=== PATIENT | female | born 1990 | race African-American/Black ===

== ENCOUNTER 2018-01-16 04:40 | Inpatient (IN) ==
[2018-01-16] MEDS ORDERED: ONDANSETRON 4 MG/2 ML VIAL IV PRN ×2 (04:53→16:38)
[2018-01-16] MEDS ORDERED: OXYTOCIN/LR 20 UNIT/1,000 ML BAG IV SCH (05:00)
[2018-01-16] MEDS: LACTATED RINGERS 1,000 ML IV SCH ×2 (05:25→09:00)
[2018-01-16 05:26] LABS: Basophils % 0.2 % (0.0-0.8); Eosinophils # 0.1 10*3/uL (0.0-0.87); Eosinophils % 0.5 % (0.00-10.9); Hematocrit 37.2 VOL% (35.7-47.0); Immature Granulocytes % 0.6 %; Immature Granulocytes Absolute 0.08 #; Lymphocytes # 3.4 10*3/uL (1.4-4.0); Lymphocytes % 25.6 % (21.3-54.2); Mean Corpuscular HGB Conc 32.3 GM/DL (32-36); Mean Corpuscular Hemoglobin 28 PG (27-34); Mean Corpuscular Volume 88.2 FL (87-102); Monocytes # 0.8 10*3/uL (0.11-0.8); Monocytes % 6.2 % (1.7-12.7); Neutrophils # 8.9 10*3/uL (1.4-7.4); Neutrophils % 66.9 % (38.7-73.9); Platelet Count 167 T/CUMM (130-400); Red Blood Count 4.22 MC/CUMM (3.8-5.5); Red Cell Distribution Width 13.9 % (9.3-17.3); White Blood Count 13.3 T/CUMM (4-12)
[2018-01-16 05:35] LABS: Apearance,Urine CLOUDY (Clear); Bacteria,Urine Occasional /HPF (Few); Bilirubin,Urine Negative (Negative); Blood, Urine Negative (Negative); Glucose,Urine (UA) Negative (Negative); Ketones,Urine Negative (Negative); Mucus,Urine Occasional /LPF (Occasional); Nitrite,Urine Negative (Negative); Protein,Urine Negative; RBC,Urine 7 /HPF (0-4); Squamous Epithelial Cell,Urine Few /HPF (0-10); Urine Color Yellow (Yellow); Urine Specific Gravity 1.005 (1.001-1.035); Urine Urobilinogen < 2.0 EU/DL (0.2-1.0); WBC,Urine 25 /HPF (0-6)
[2018-01-16] MEDS ORDERED: hydrOXYzine HCL 25 MG/1 ML VIAL IM PRN (08:00)
[2018-01-16] MEDS ORDERED: diphenhydrAMINE 50 MG/1 ML VIAL IV PRN (08:00)
[2018-01-16] MEDS ORDERED: fentaNYL 2 MCG/ROPIV 0.2% EPID 100 ML EPIDURAL SCH (08:00)
[2018-01-16] MEDS ORDERED: CITRIC ACID/SODIUM CITRATE 30 ML UDCUP PO ONE (08:00)
[2018-01-16] MEDS ORDERED: PROMETHAZINE 25 MG/1 ML VIAL IM PRN (08:00)
[2018-01-16] MEDS ORDERED: NALOXONE 0.4 MG/ML VIAL IV PRN (08:00)
[2018-01-16] MEDS ORDERED: ePHEDrine 50 MG/ML AMP IV PRN (08:00)
[2018-01-16] MEDS ORDERED: FAMOTIDINE 20 MG/2 ML VIAL IV ONE (08:00)
[2018-01-16] MEDS ORDERED: AMPICILLIN INJ 2,000 MG in SODIUM CHLORIDE 0.9% 100 ML IV ONE (10:01)
[2018-01-16] MEDS ORDERED: AMPICILLIN 2,000 MG VIAL ONE (10:03)
[2018-01-16] MEDS ORDERED: SODIUM CHLORIDE 0.9% 100 ML IV ONE (10:04)
[2018-01-16] MEDS ORDERED: OXYTOCIN 10 UNIT/ML VIAL IM ONE ×2 (14:31)
[2018-01-16] MEDS ORDERED: OXYTOCIN/LR 30 UNIT/1,000 ML BAG IV ONE (14:31)
[2018-01-16] MEDS ORDERED: ceFAZolin 3,000 MG in SYRINGE 1 EACH IV SCH (15:00)
[2018-01-16] MEDS ORDERED: PHENYLEPHRINE 1 MG/10 ML SYRINGE IV ONE (16:31)
[2018-01-16] MEDS ORDERED: MORPHINE 10 MG/10 ML VIAL ONE (16:31)
[2018-01-16] MEDS ORDERED: fentaNYL 100 MCG/2 ML VIAL ONE (16:31)
[2018-01-16] MEDS ORDERED: LIDOCAINE MPF 2% /EPI 20 ML VIAL ONE (16:31)
[2018-01-16] MEDS ORDERED: ONDANSETRON 4 MG/2 ML VIAL ONE (16:31)
[2018-01-16 16:36] LABS: Cord Arterial Blood HCO3 14.8 MMOL/L
[2018-01-16 16:37] LABS: Cord Venous Blood HCO3 22.6 MMOL/L; Cord Venous Blood PCO2 59.1 MMHG; Cord Venous Blood PO2 27.3 MMHG
[2018-01-16] MEDS ORDERED: SIMETHICONE CHEW 80 MG TABLET PO PRN (16:38)
[2018-01-16] MEDS ORDERED: IBUPROFEN 800 MG TABLET PO PRN (16:38)
[2018-01-16] MEDS ORDERED: MAGNESIUM HYDROXIDE SUSP 30 ML UDCUP PO PRN (16:38)
[2018-01-16] MEDS ORDERED: OXYTOCIN/LR 20 UNIT/1,000 ML BAG IV ONE (16:38)
[2018-01-16] MEDS ORDERED: ACETAMINOPHEN 325 MG TABLET PO PRN (16:38)
[2018-01-16] MEDS ORDERED: RHO(D) IMMUNE GLOBULIN 300 MCG SYRINGE IM ONE (16:38)
[2018-01-16] MEDS: DOCUSATE SODIUM 100 MG CAPSULE PO SCH (22:37)
[2018-01-16] MEDS: ceFAZolin 1,000 MG in SYRINGE 1 EACH IV SCH (22:54)
[2018-01-16 23:32] LABS: Basophils # 0.1 10*3/uL (0.0-0.2); Basophils % 0.2 % (0.0-0.8); Hematocrit 32.7 VOL% (35.7-47.0); Hemoglobin 10.5 GM/DL (12.0-16.0); Immature Granulocytes % 0.7 %; Immature Granulocytes Absolute 0.18 #; Lymphocytes # 1.2 10*3/uL (1.4-4.0); Lymphocytes % 4.4 % (21.3-54.2); Mean Corpuscular HGB Conc 32.1 GM/DL (32-36); Mean Corpuscular Hemoglobin 29 PG (27-34); Mean Corpuscular Volume 88.6 FL (87-102); Mean Platelet Volume 12.7 FL (9.6-12.0); Monocytes # 1.4 10*3/uL (0.11-0.8); Monocytes % 4.9 % (1.7-12.7); Neutrophils # 24.9 10*3/uL (1.4-7.4); Neutrophils % 89.8 % (38.7-73.9); Platelet Count 143 T/CUMM (130-400); Red Blood Count 3.69 MC/CUMM (3.8-5.5); Red Cell Distribution Width 13.7 % (9.3-17.3); White Blood Count 27.7 T/CUMM (4-12)
[2018-01-17] MEDS: LACTATED RINGERS 1,000 ML IV SCH (02:19)
[2018-01-17 03:45] LABS: Band Neutrophils 4 % (0-10); Lymphocytes 2 % (20-55); Segmented Neutrophils 91 % (50-85); Total Cells Counted 100
[2018-01-17 03:46] LABS: Platelet Estimate Decreased
[2018-01-17] MEDS: ceFAZolin 1,000 MG in SYRINGE 1 EACH IV SCH (06:06)
[2018-01-17 07:51] LABS: Basophils % 0.1 % (0.0-0.8); Hematocrit 30.6 VOL% (35.7-47.0); Hemoglobin 10.1 GM/DL (12.0-16.0); Immature Granulocytes % 0.7 %; Immature Granulocytes Absolute 0.17 #; Lymphocytes # 2.2 10*3/uL (1.4-4.0); Lymphocytes % 9.3 % (21.3-54.2); Mean Corpuscular Hemoglobin 29 PG (27-34); Mean Corpuscular Volume 88.4 FL (87-102); Mean Platelet Volume 12.6 FL (9.6-12.0); Monocytes # 1.5 10*3/uL (0.11-0.8); Monocytes % 6.1 % (1.7-12.7); Neutrophils # 20.1 10*3/uL (1.4-7.4); Neutrophils % 83.8 % (38.7-73.9); Platelet Count 146 T/CUMM (130-400); Red Blood Count 3.46 MC/CUMM (3.8-5.5); Red Cell Distribution Width 13.7 % (9.3-17.3)
[2018-01-17 08:37] LABS: Lymphocytes 6 % (20-55); Segmented Neutrophils 92 % (50-85); Total Cells Counted 100
[2018-01-17 08:47] LABS: Platelet Estimate Decreased
[2018-01-17] MEDS: METOCLOPRAMIDE 10 MG/2 ML VIAL IV SCH ×3 (09:47→20:58)
[2018-01-17] MEDS: MAGNESIUM HYDROXIDE SUSP 30 ML UDCUP PO SCH ×2 (09:55→20:57)
[2018-01-17] MEDS: DOCUSATE SODIUM 100 MG CAPSULE PO SCH ×2 (09:55→20:57)
[2018-01-17] MEDS: SIMETHICONE CHEW 80 MG TABLET PO SCH ×4 (09:56→22:28)
[2018-01-17] MEDS: MULTIVITAMIN (PRENATAL) TABLET PO SCH (09:56)
[2018-01-18] MEDS: METOCLOPRAMIDE 10 MG/2 ML VIAL IV SCH ×2 (03:55→04:32)
[2018-01-18] MEDS ORDERED: METOCLOPRAMIDE 10 MG TABLET PO PRN (04:39)
[2018-01-18] MEDS: LACTATED RINGERS 1,000 ML IV SCH (06:38)
[2018-01-18] MEDS: MAGNESIUM HYDROXIDE SUSP 30 ML UDCUP PO SCH (08:00)
[2018-01-18] MEDS: SIMETHICONE CHEW 80 MG TABLET PO SCH ×2 (08:00→14:13)
[2018-01-18] MEDS: DOCUSATE SODIUM 100 MG CAPSULE PO SCH (08:01)
[2018-01-18] MEDS: MULTIVITAMIN (PRENATAL) TABLET PO SCH (08:01)
[2018-01-18 08:36] VITALS: BP 128/70
== END 2018-01-18 15:15 | disposition home or self-care (01) | DRG 788 ==
LOC: N.LDOUT 04:40 → N.LD 04:46 → N.OB 22:06
PROVIDERS: ADMIT Obstetrics & Gynecology; ATTEND Obstetrics & Gynecology
PROC: LDCSECT (ICD-10-PCS; 2018-01-16 15:15)